=== PATIENT | male | born 1960 | race Caucasian/White ===

== ENCOUNTER 2018-02-22 10:20 | Emergency (ER) | payer OTHER ==
[~2018-02-22] VITALS: Ht 177.8 cm; Wt 77.1 kg
[2018-02-22 10:23] VITALS: BP 117/65
[2018-02-22] MEDS ORDERED: TIVICAY50 MG ORAL (10:27)
[2018-02-22] MEDS ORDERED: BACTRIM DOUBLE S1 E1 ORAL (10:27)
[2018-02-22] MEDS ORDERED: AZITHROMYC200 MG/5 M ORAL (10:27)
[2018-02-22 11:49] VITALS: BP 117/65
--- NOTE | 2018-02-22 13:44 | Emergency Room Report ---
History of Present Illness General Chief Complaint: Abdominal Pain Source: Patient Present Illness HPI 57-year-old male presents ED for evaluation of abdominal pain, diarrhea. Brought in by EMS. Patient states he's been having symptoms for the last few weeks. History of HIV and states that his CD4 count is low despite being on medication. States he was admitted initially but then subsequently discharged. States the symptoms are persisting. Pain is 8 out of 10, cramping, nonradiating. Denies fevers or chills. Denies chest pain or shortness of breath. No other aggravating relieving factors. Denies any other associated symptoms Allergies: Coded Allergies: No Known Allergies (Unverified , 02/22/18) Patient History Past Medical History: none Past Surgical History: none Pertinent Family History: none Social History: Denies: smoking, alcohol use, drug use Immunizations: UTD Reviewed Nursing Documentation: PMH: Agreed; PSxH: Agreed Nursing Documentation-PMH Past Medical History: No History, Except For Review of Systems All Other Systems: negative except mentioned in HPI Physical Exam Vital Signs Date Time Temp Pulse Resp B/P (MAP) Pulse Ox O2 Delivery O2 Flow Rate FiO2 02/22/18 10:15 98.4 95 18 117/65 98 Room Air 98.4 Sp02 EP Interpretation: reviewed, normal General Appearance: no apparent distress, alert, GCS 15, non-toxic Head: normocephalic, atraumatic Eyes: bilateral eye normal inspection, bilateral eye PERRL ENT: hearing grossly normal, normal pharynx, no angioedema, normal voice Neck: full range of motion, supple/symm/no masses Respiratory: chest non-tender, lungs clear, normal breath sounds, speaking full sentences Cardiovascular #1: regular rate, rhythm, no edema Cardiovascular #2: 2+ carotid (R), 2+ carotid (L), 2+ radial (R), 2+ radial (L) , 2+ dorsalis pedis (R), 2+ dorsalis pedis (L) Gastrointestinal: normal bowel sounds, non tender, soft, non-distended, no guarding, no rebound Rectal: deferred Genitourinary: normal inspection, no CVA tenderness Musculoskeletal: back normal, gait/station normal, normal range of motion, non- tender Neurologic: alert, oriented x3, responsive, motor strength/tone normal, sensory intact, speech normal Psychiatric: judgement/insight normal, memory normal, mood/affect normal, no suicidal/homicidal ideation Reflexes: 3+ bicep (R), 3+ bicep (L), 3+ tricep (R), 3+ tricep (L), 3+ knee (R) , 3+ knee (L) Skin: normal color, no rash, warm/dry, well hydrated Lymphatic: no adenopathy Medical Decision Making Diagnostic Impression: Primary Impression: Colitis ER Course Hospital Course 57-year-old male presents ED with abdominal pain, vomiting and diarrhea Clinical course Differentialgastroenteritis, C. difficile, dehydration Patient placed on stretcher. After initial history and physical I ordered labs , IV fluids, medications Patient refusing attempt at IV access. States he wants to be discharged Understands the risks of leaving. Patient has competency to make his own decisions. Signed AMA form. Diagnosis - colitis patient left AMA Last Vital Signs Date Time Temp Pulse Resp B/P (MAP) Pulse Ox O2 Delivery O2 Flow Rate FiO2 02/22/18 11:49 98.4 18 117/65 98 Room Air 98.4 02/22/18 10:15 95 Status: unchanged Disposition: AGAINST MEDICAL ADVICE Condition: Stable Referrals: [facility],REFERRING (PCP) Daniel Jerez MD Feb 22, 2018 13:44
== END 2018-02-22 11:49 | disposition left against medical advice (07) ==
LOC: EDBD 10:20 → EMR 10:30
DX: K52.9 Noninfective gastroenteritis and colitis, unspecified (principal)
CPT/HCPCS: 99282